=== PATIENT | female | born 1970 | race Caucasian/White ===

== ENCOUNTER 2016-11-11 16:59 | Emergency (ER) | payer SELFPAY ==
[~2016-11-11] VITALS: Ht 157.5 cm; Wt 59.1 kg
[~2016-11-11 16:59] MED LIST: ACET500T71 PO; AMIT50TA PO; CHOL200040 PO; FERR134T2 PO; FERR325C PO; IBUP-1222 PO; IBUP200C PO; IRON1TAB60 PO; MULT-230 PO; OMEP40CA3 PO; OXYC-302 PO; miralax
[2016-11-11 18:22] VITALS: BP 122/75
== END 2016-11-11 18:31 | disposition home or self-care (01) ==
LOC: ED 18:25
DX: R04.0 Epistaxis (principal)
CPT/HCPCS: 36415; 85025; 85610; 85730; 99284

== ENCOUNTER 2018-11-27 15:13 | Emergency (ER) | payer BC ==
[~2018-11-27] VITALS: Ht 160 cm; Wt 59.6 kg
[~2018-11-27 15:13] MED LIST changes: +IBUP-1623 PO; -IBUP200C PO; -MULT-230 PO; +MULT-806 PO
[2018-11-27 16:07] LABS: BASOPHILS # (AUTO) 0.04 x10^3/uL (0-0.1); BASOPHILS % (AUTO) 0 % (0-1); EOSINOPHILS # (AUTO) 0.17 x10^3/uL (0-0.4); EOSINOPHILS % (AUTO) 2 % (1-7); LYMPHOCYTES # (AUTO) 2.35 x10^3/uL (1-3.4); LYMPHOCYTES % (AUTO) 28 % (22-44); MD NO; MEAN CORPUSCULAR HEMOGLOBIN 30.5 pg (27.0-34.8); MEAN CORPUSCULAR VOLUME 92.3 fL (80-100); MEAN PLATELET VOLUME 8.2 fL (7.4-10.4); MONOCYTES # (AUTO) 0.57 x10^3/uL (0.2-0.8); MONOCYTES % (AUTO) 7 % (2-9); NEUTROPHILS # (AUTO) 5.37 x10^3/uL (1.8-6.8); NEUTROPHILS % (AUTO) 63 % (42-75); PLATELET COUNT 292 x10^3/uL (130-400); RED BLOOD COUNT 4.67 x10^6/uL (3.82-5.3); RED CELL DISTRIBUTION WIDTH 12.3 % (9.6-15.2)
[2018-11-27 16:14] LABS: CHLORIDE 100 mmol/L (98-107)
--- NOTE | 2018-11-27 16:19 | NUR ---
PT REPORTS HER PCP TOLD HER SHE HAS GALLSTONES. HER PAIN IS A 7/10, IT IS ON HER RS AND RADIATES TO R FLANK.
[2018-11-27 16:25] LABS: ALANINE AMINOTRANSFERASE 31 U/L (12-78); ALBUMIN 4.4 g/dL (3.4-5.0); ALKALINE PHOSPHATASE 88 U/L (45-117); ANION GAP 6 mmol/L (5-15); BILIRUBIN,TOTAL 0.2 mg/dL (0.2-1.0); CALCIUM 9.1 mg/dL (8.5-10.1); CREATININE 0.75 mg/dL (0.55-1.02); TOTAL PROTEIN 8.5 g/dL (6.4-8.2)
--- NOTE | 2018-11-27 17:00 | NUR ---
Patient is resting comfortably in bed. Vital Signs within normal limits.
[2018-11-27 17:22] LABS: MICROSCOPIC AUTO
[2018-11-27 17:23] LABS: CULTURE INDICATED? NO
[2018-11-27 17:45] VITALS: BP 119/85
--- NOTE | 2018-11-27 17:45 | NUR ---
POC DISCUSSED WITH PT, PT VERBALIZED UNDERSTANDING. DENIES NEEDS. VSS.
== END 2018-11-27 17:54 | disposition home or self-care (01) ==
LOC: ED 17:40
DX: K80.42 Calculus of bile duct with acute cholecystitis without obstruction (principal)
CPT/HCPCS: 36415; 76700; 80053; 81001; 83690; 84703; 85025; 99284

== ENCOUNTER 2018-12-09 05:18 | Inpatient (IN) | payer BC ==
[~2018-12-09] VITALS: Ht 160 cm; Wt 58.6 kg
[2018-12-09] MEDS ORDERED: MORPHINE SULFATE 4 MG/ML, 1ML ONE (05:45)
[2018-12-09] MEDS ORDERED: ONDANSETRON 2MG/ML, 2ML ONE (05:45)
[2018-12-09 05:55] LABS: BASOPHILS # (AUTO) 0.06 x10^3/uL (0-0.1); BASOPHILS % (AUTO) 1 % (0-1); EOSINOPHILS % (AUTO) 1 % (1-7); LYMPHOCYTES # (AUTO) 1.69 x10^3/uL (1-3.4); LYMPHOCYTES % (AUTO) 23 % (22-44); MD NO; MEAN CORPUSCULAR HEMOGLOBIN 31.3 pg (27.0-34.8); MEAN CORPUSCULAR HGB CONC 33.6 g/dL (32.4-35.8); MEAN CORPUSCULAR VOLUME 93.3 fL (80-100); MEAN PLATELET VOLUME 8.2 fL (7.4-10.4); MONOCYTES # (AUTO) 0.45 x10^3/uL (0.2-0.8); MONOCYTES % (AUTO) 6 % (2-9); NEUTROPHILS % (AUTO) 69 % (42-75); PLATELET COUNT 228 x10^3/uL (130-400); RED BLOOD COUNT 4.23 x10^6/uL (3.82-5.3); RED CELL DISTRIBUTION WIDTH 12.6 % (9.6-15.2)
--- NOTE | 2018-12-09 05:57 | NUR ---
PT. TO ED WITH C/O RUQ ABD PAIN GETTING WORSE SINCE YESTERDAY. PT. REPORTS HX OF GALL STONES DX HERE. PT. C/O N/V STARTING THIS AM. LABS WERE DRAWN. IV ESTABLISHED, PT. MEDICATED PER JUL. PT. AWARE OF NEED FOR UA BUT UNABLE TO PROVIDE AT THIS TIME. PT. ALSO AWARE OF NPO STATUS. AWAITING US. CALL LIGHT IN REACH; PT. TO CALL WHEN ABLE TO VOID. FAMILY AT FOR SUPPORT. CONTINUOUS PULSE OX AND B/P MONITORS IN PLACE. ALL SAFETY MEASURES OBERVED.
[2018-12-09 06:00] LABS: ALANINE AMINOTRANSFERASE 31 U/L (12-78); ALBUMIN 3.9 g/dL (3.4-5.0); ANION GAP 7 mmol/L (5-15); CALCIUM 8.4 mg/dL (8.5-10.1); CHLORIDE 94 mmol/L (98-107); CREATININE 0.55 mg/dL (0.55-1.02)
[2018-12-09] MEDS ORDERED: SODIUM CHLORIDE FLUSH 10ML SYR IVF ONE (06:00)
[2018-12-09] MEDS ORDERED: MORPHINE SULFATE 4 MG/ML, 1ML IVPush PRN (06:00)
[2018-12-09] MEDS ORDERED: ONDANSETRON 2MG/ML, 2ML IVPush ONE (06:00)
[2018-12-09 06:02] LABS: ALKALINE PHOSPHATASE 70 U/L (45-117); BILIRUBIN,TOTAL 0.4 mg/dL (0.2-1.0); TOTAL PROTEIN 7.6 g/dL (6.4-8.2)
[2018-12-09] MEDS ORDERED: SODIUM CHLORIDE 0.9% 1,000 ML IV ONE (06:30)
--- NOTE | 2018-12-09 07:10 | NUR ---
REPORT TO ION SINGH TO ASSUME PT. CARE. URINE HAS BEEN SENT. US RESULTS PENDING.
--- NOTE | 2018-12-09 07:14 | NUR ---
REPORT TAKEN FROM ION SHEA. PT RESTING ON [facility]. VSS. VAZQUEZ.
[2018-12-09 07:20] LABS: MICROSCOPIC AUTO
[2018-12-09] MEDS ORDERED: TRAM50TA2 PO (07:20)
[2018-12-09] MEDS ORDERED: ZOLP10TA5 PO (07:20)
[2018-12-09] MEDS ORDERED: DICL75TA3 PO (07:20)
[2018-12-09] MEDS ORDERED: OXYB5TAB2 PO (07:20)
--- NOTE | 2018-12-09 07:20 | NUR ---
AT BEDSIDE TO UPDATE PT ON POC. PT DENIES NEEDS AT THIS TIME. VSS. VAZQUEZ.
[2018-12-09 07:23] LABS: CULTURE INDICATED? NO
--- NOTE | 2018-12-09 07:43 | NUR ---
PT AMBULATORY TO BATHROOM WITH STEADY GAIT AT THIS TIME.
--- NOTE | 2018-12-09 07:48 | NUR ---
PT NOW RESTING ON [employer], CONNECTED TO THE MONITOR. DENIES NEEDS. VSS. NADN. CALL LIGHT IN REACH.
--- NOTE | 2018-12-09 08:15 | NUR ---
REPORT GIVEN TO ION SUGGS ON MEDICAL AT THIS TIME. PT AMBULATING TO BATHROOM WITH STEADY GAIT.
[2018-12-09] MEDS ORDERED: DOCUSATE 100 MG CAPSULE PO PRN (08:30)
[2018-12-09] MEDS ORDERED: ENALAPRILAT 1.25 MG/ML, 2ML IVPush PRN (08:30)
[2018-12-09] MEDS ORDERED: ACETAMINOPHEN 325 MG TABLET PO PRN (08:30)
[2018-12-09 09:09] VITALS: BP 125/85
[2018-12-09] MEDS: SODIUM CHLORIDE 0.9% 1,000 ML IV SCH (11:15)
[2018-12-09] MEDS: OXYBUTYNIN CHLORIDE 5 MG TABLET PO SCH ×2 (11:15→21:05)
[2018-12-09] MEDS: SENNA/DOCUSATE TABLET PO SCH (11:16)
[2018-12-09] MEDS: HEPARIN 5,000 UNITS/ML, 1ML SQ SCH ×2 (11:17→18:40)
[2018-12-09 12:54] LABS: ANION GAP 5 mmol/L (5-15); CALCIUM 8.7 mg/dL (8.5-10.1); CHLORIDE 104 mmol/L (98-107)
[2018-12-09 12:57] LABS: CREATININE 0.56 mg/dL (0.55-1.02)
[2018-12-09] MEDS: ONDANSETRON 2MG/ML, 2ML IVPush PRN (14:17)
[2018-12-09 14:28] VITALS: BP 123/86
[2018-12-09 15:52] LABS: ANION GAP 4 mmol/L (5-15); CHLORIDE 106 mmol/L (98-107)
[2018-12-09 15:54] LABS: CALCIUM 8.6 mg/dL (8.5-10.1); CREATININE 0.65 mg/dL (0.55-1.02)
[2018-12-09] MEDS ORDERED: SODIUM CHLORIDE 0.9% 1,000 ML IV SCH (16:00)
[2018-12-09] MEDS: morphine SULFATE 10 MG/ML, 1ML IVPush PRN (18:39)
[2018-12-09 19:50] VITALS: BP 123/80
[2018-12-09] MEDS ORDERED: ZOLPIDEM 10MG TABLET PO PRN (21:00)
[2018-12-10] MEDS: SODIUM CHLORIDE 0.9% 1,000 ML IV SCH ×2 (00:44→11:55)
[2018-12-10] MEDS: HEPARIN 5,000 UNITS/ML, 1ML SQ SCH ×3 (00:48→17:29)
[2018-12-10 01:20] VITALS: BP 129/85
[2018-12-10 05:22] LABS: BASOPHILS # (AUTO) 0.04 x10^3/uL (0-0.1); BASOPHILS % (AUTO) 1 % (0-1); EOSINOPHILS # (AUTO) 0.16 x10^3/uL (0-0.4); EOSINOPHILS % (AUTO) 2 % (1-7); LYMPHOCYTES # (AUTO) 2.02 x10^3/uL (1-3.4); LYMPHOCYTES % (AUTO) 30 % (22-44); MD NO; MEAN CORPUSCULAR HEMOGLOBIN 30.4 pg (27.0-34.8); MEAN CORPUSCULAR HGB CONC 32.5 g/dL (32.4-35.8); MEAN CORPUSCULAR VOLUME 93.6 fL (80-100); MEAN PLATELET VOLUME 8.2 fL (7.4-10.4); MONOCYTES # (AUTO) 0.53 x10^3/uL (0.2-0.8); MONOCYTES % (AUTO) 8 % (2-9); NEUTROPHILS # (AUTO) 3.99 x10^3/uL (1.8-6.8); NEUTROPHILS % (AUTO) 59 % (42-75); PLATELET COUNT 226 x10^3/uL (130-400); RED CELL DISTRIBUTION WIDTH 12.6 % (9.6-15.2)
[2018-12-10 05:36] LABS: CHLORIDE 110 mmol/L (98-107)
[2018-12-10 05:44] LABS: ALANINE AMINOTRANSFERASE 38 U/L (12-78); ALBUMIN 3.4 g/dL (3.4-5.0); ALKALINE PHOSPHATASE 58 U/L (45-117); ANION GAP 4 mmol/L (5-15); BILIRUBIN,TOTAL 0.4 mg/dL (0.2-1.0); CALCIUM 8.1 mg/dL (8.5-10.1); CREATININE 0.66 mg/dL (0.55-1.02); TOTAL PROTEIN 6.7 g/dL (6.4-8.2)
[2018-12-10] MEDS: OMEPRAZOLE 20 MG CAPSULE.DR PO SCH (05:48)
[2018-12-10 07:50] VITALS: BP 122/76
[2018-12-10] MEDS: morphine SULFATE 10 MG/ML, 1ML IVPush PRN ×2 (08:35→12:03)
[2018-12-10] MEDS: OXYBUTYNIN CHLORIDE 5 MG TABLET PO SCH ×2 (08:35→20:49)
[2018-12-10] MEDS: SENNA/DOCUSATE TABLET PO SCH (08:36)
[2018-12-10] MEDS: ONDANSETRON 2MG/ML, 2ML IVPush PRN (10:58)
[2018-12-10 13:30] VITALS: BP 100/68
[2018-12-10 19:34] VITALS: BP 101/66
[2018-12-11] MEDS: HEPARIN 5,000 UNITS/ML, 1ML SQ SCH ×2 (01:00→09:00)
[2018-12-11] MEDS: SODIUM CHLORIDE 0.9% 1,000 ML IV SCH (01:09)
[2018-12-11 01:26] VITALS: BP 96/62
[2018-12-11] MEDS: OMEPRAZOLE 20 MG CAPSULE.DR PO SCH (06:12)
[2018-12-11 07:27] VITALS: BP 117/77
[2018-12-11] MEDS ORDERED: ONDANSETRON ODT 4 MG PO PRN (08:30)
[2018-12-11] MEDS ORDERED: HYDROcodone/APAP 5/325 TABLET PO PRN (08:30)
[2018-12-11] MEDS: OXYBUTYNIN CHLORIDE 5 MG TABLET PO SCH (09:43)
[2018-12-11] MEDS: SENNA/DOCUSATE TABLET PO SCH (09:43)
[2018-12-11] MEDS ORDERED: OXYC1TAB7 PO (12:16)
[2018-12-11] MEDS ORDERED: ONDA4TAB13 SL (12:17)
[2018-12-12] MEDS ORDERED: MIDAZOLAM 1 MG/ML, 2ML ONE (15:09)
[2018-12-12] MEDS ORDERED: FENTANYL PF 250 MCG/5ML ONE (15:41)
[2018-12-12] MEDS ORDERED: SUGAMMADEX 200 MG/2 ML IVPush ONE (15:43)
[2018-12-12] MEDS ORDERED: PROPOFOL 10 MG/ML, 20ML ONE (15:43)
[2018-12-12] MEDS ORDERED: SUCCINYLCHOLINE 20 MG/ML, 10ML ONE (15:43)
[2018-12-12] MEDS ORDERED: NEOSTIGMINE 1 MG/ML, 10ML ONE (15:43)
[2018-12-12] MEDS ORDERED: GLYCOPYRROLATE 0.2MG/1ML, 5ML ONE (15:43)
[2018-12-12] MEDS ORDERED: ONDANSETRON 2MG/ML, 2ML ONE (15:43)
[2018-12-12] MEDS ORDERED: ROCURONIUM 10MG/ML,5ML ONE (15:43)
[2018-12-12] MEDS ORDERED: CEFAZOLIN 1,000 MG ONE (15:43)
[2018-12-12] MEDS ORDERED: DEXAMETHASONE 4 MG/ML, 1ML ONE (15:43)
== END 2018-12-11 13:40 | disposition home or self-care (01) | DRG 445 ==
LOC: ED 05:51 → EDIP 07:38 → 3NE 08:39 → DCLOUNGE 12-11 13:26
PROVIDERS: ADMIT Family Medicine; ATTEND Family Medicine
DX: K80.62 Calculus of gallbladder and bile duct with acute cholecystitis without obstruction (principal); E87.1 Hypo-osmolality and hyponatremia; K21.9 Gastro-esophageal reflux disease without esophagitis; K59.00 Constipation, unspecified; M79.7 Fibromyalgia; Z87.442 Personal history of urinary calculi; Z90.710 Acquired absence of both cervix and uterus
CPT/HCPCS: 36415; 76700; 80048; 80053; 81001; 83690; 85025; 93005; 96374; 96375; G0378; J0690; J1100; J1644; J2250; J2405; J2704; J2710; J3010; J0330; J2270; J7030

== ENCOUNTER 2018-12-12 12:12 | Day surgery (SDC) | payer BC ==
[~2018-12-12] VITALS: Ht 160 cm; Wt 56.8 kg
[~2018-12-12 12:12] MED LIST changes: +DICL75TA3 PO; +ONDA4TAB13 SL; +OXYB5TAB2 PO; +OXYC1TAB7 PO; +TRAM50TA2 PO; +ZOLP10TA5 PO
[2018-12-12 12:36] VITALS: BP 131/80
[2018-12-12] MEDS ORDERED: LACTATED RINGERS 1,000 ML IV SCH (12:40)
[2018-12-12] MEDS ORDERED: BUPIVACAINE/PF 0.5% ONE (13:57)
[2018-12-12] MEDS ORDERED: CEFAZOLIN 1,000 MG ONE (15:11)
[2018-12-12] MEDS ORDERED: KETOROLAC 30 MG/1 ML ONE (15:11)
[2018-12-12] MEDS ORDERED: ONDANSETRON 2MG/ML, 2ML ONE (15:11)
[2018-12-12] MEDS ORDERED: DEXAMETHASONE 4 MG/ML, 1ML ONE (15:11)
[2018-12-12] MEDS ORDERED: ROCURONIUM 10 MG/ML,10ML ONE (15:11)
[2018-12-12] MEDS ORDERED: PROPOFOL 10 MG/ML, 20ML ONE (15:11)
[2018-12-12] MEDS ORDERED: MIDAZOLAM 1 MG/ML, 2ML ONE (15:11)
[2018-12-12] MEDS ORDERED: SUGAMMADEX 200 MG/2 ML IVPush ONE (15:11)
[2018-12-12] MEDS ORDERED: ACETAMINOPHEN 325 MG TABLET PO PRN (15:30)
[2018-12-12] MEDS ORDERED: OXYcodone 5 MG/5 ML ORAL.SOL UDC PO PRN (15:30)
[2018-12-12] MEDS ORDERED: HYDROmorphone 2 MG/ML, 1ML IVPush PRN (15:30)
[2018-12-12] MEDS ORDERED: hydrALAzine 20 MG/ML, 1ML IV PRN (15:30)
[2018-12-12] MEDS ORDERED: DIAZEPAM 5 MG/ML, 2ML IVPush PRN (15:30)
[2018-12-12] MEDS ORDERED: PROMETHAZINE 25 MG/ML, 1ML IV PRN (15:30)
[2018-12-12] MEDS ORDERED: LABETALOL 5MG/ML, 20ML IV PRN (15:30)
[2018-12-12] MEDS ORDERED: KETOROLAC 30 MG/1 ML IV PRN (15:30)
[2018-12-12] MEDS ORDERED: ALBUTEROL SULFATE 2.5 MG/3 ML NPPB PRN (15:30)
[2018-12-12] MEDS ORDERED: MEPERIDINE/PF 25MG/0.5ML IVPush PRN (15:30)
[2018-12-12] MEDS ORDERED: OXYcodone 5 MG/5 ML ORAL.SOL UDC ONE (16:04)
[2018-12-12] MEDS ORDERED: FENTANYL PF 100 MCG/2ML ONE (16:04)
[2018-12-12] MEDS: FENTANYL PF 100 MCG/2ML IV PRN ×2 (16:06→16:18)
[2018-12-12] MEDS ORDERED: HYDROmorphone 2 MG/ML, 1ML ONE (16:25)
== END 2018-12-12 18:55 | disposition home or self-care (01) ==
LOC: OUT 12:12
PROVIDERS: ATTEND Surgery
DX: K80.10 Calculus of gallbladder with chronic cholecystitis without obstruction (principal); K21.9 Gastro-esophageal reflux disease without esophagitis; G43.909 Migraine, unspecified, not intractable, without status migrainosus; Z79.1 Long term (current) use of non-steroidal anti-inflammatories (NSAID); Z79.899 Other long term (current) drug therapy; Z98.51 Tubal ligation status; Z90.710 Acquired absence of both cervix and uterus; Z80.49 Family history of malignant neoplasm of other genital organs; Z83.42 Family history of familial hypercholesterolemia
CPT/HCPCS: 47562; 88304; J0690; J1100; J1170; J1885; J2250; J2405; J2704; J3010

== ENCOUNTER 2018-12-25 21:32 | Emergency (ER) | payer BC ==
[~2018-12-25] VITALS: Ht 160 cm; Wt 59.9 kg
[2018-12-25 23:04] VITALS: BP 123/85
== END 2018-12-25 23:58 | disposition home or self-care (01) ==
LOC: ED 22:57
DX: R11.0 Nausea (principal); R10.13 Epigastric pain; R10.12 Left upper quadrant pain; Z90.49 Acquired absence of other specified parts of digestive tract
CPT/HCPCS: 36415; 80053; 81001; 83690; 84484; 84703; 85025; 93005; 96372; 99284; J2550; Q0162

== ENCOUNTER → 2019-10-29 | Outpatient (CLI) | payer BC ==
[~2019-10-29] MED LIST changes: +ACET500T64 PO; -ACET500T71 PO; +OXYB-39 PO; -OXYB5TAB2 PO
== END | disposition home or self-care (01) ==
LOC: RAD 10:14
PROVIDERS: ATTEND Internal Medicine Gastroenterology
DX: K30 Functional dyspepsia (principal); K21.9 Gastro-esophageal reflux disease without esophagitis
CPT/HCPCS: 78264; A9541